=== PATIENT | male | born 2000 | race Caucasian/White ===

== ENCOUNTER 2023-08-30 00:32 | Emergency (ER) | payer BC ==
[~2023-08-30] VITALS: Ht 185.4 cm; Wt 81.6 kg
[2023-08-30 02:41] VITALS: TEMP 97.8
[2023-08-30] MEDS ORDERED: LIDOCAINE /MPF 1% VIAL 5 ML VIAL ONE (03:36)
[2023-08-30] MEDS ORDERED: TDAP [DIPH/PERTUSSIS/TET] 0.5 ML VIAL IM ONE (03:43)
[2023-08-30] MEDS: TDAP [DIPH/PERTUSSIS/TET] 0.5 ML VIAL IM ONE (03:49)
[2023-08-30] MEDS: LIDOCAINE HCL/PF 1% 30 ML VIAL IJ ONE (03:49)
[2023-08-30] MEDS ORDERED: CEPH500C2 PO (05:04)
[2023-08-30 05:13] VITALS: BP 122/74; O2SAT 99
== END 2023-08-30 05:14 | disposition home or self-care (01) ==
LOC: ER 00:38
DX: S01.81XA Laceration without foreign body of other part of head, initial encounter (principal); Z60.2 Problems related to living alone; Y08.89XA Assault by other specified means, initial encounter; Y93.89 Activity, other specified; Y92.89 Other specified places as the place of occurrence of the external cause; Y99.8 Other external cause status
CPT/HCPCS: 12011; 90471; 90715; 99283; J3490